=== PATIENT | female | born 1980 | race Caucasian/White ===

== ENCOUNTER 2017-05-18 17:45 | Emergency (ER) | payer BC ==
[2017-05-18 17:58] VITALS: BP 123/71
--- NOTE | 2017-05-18 18:22 | UC ---
Rony Ag Natalie, scribed for Alexander Barnes MD on 05/18/17 at 1816 . Back Pain HPI - HPI Summary HPI Summary: The pt is a 36 y/o F presenting to c/o low back pain starting for four days. she states she has been carrying ill children around at home and exacerbated this time by this. The pain is in the mid-low area of her back and radiates to her right hip. She has a previous back injury from 18 years ago to her sacroiliac joint where she was dropped on her back in a cheerleading accident. The pain is rated 8/10. The patient has treated the pain with Tylenol and Ibuprofen DATA KEYER. Pt denies muscle spasms, and weakness or numbness in legs. She hasnt had any falls recently. She has had similar episodes in the past with the same symptoms. The pt has had x-rays and physical therapy for her back injury in the past. - History of Current Complaint Chief Complaint: UCBackPain Stated Complaint: LOWER BACK PAIN Time Seen by Provider: 05/18/17 18:01 Hx Obtained From: Patient Hx Last Menstrual Period: 05/10/17 Onset/Duration: Lasting Days - started 4 days ago, Still Present Timing: Lasting Days Severity Initially: Moderate Severity Currently: Moderate Pain Intensity: 8 Pain Scale Used: 0-10 Numeric Back Pain: Is Diffuse - mid and low back, Radiates To - right hip Aggravating Factor(s): Nothing Alleviating Factor(s): Nothing Associated Signs And Symptoms: Negative: Weakness, Numbness, Other - muscle spasms - Allergies/Home Medications Allergies/Adverse Reactions: Allergies Allergy/AdvReac Type Severity Reaction Status Date / Time No Known Allergies Allergy Verified 05/18/17 17:58 PMH/Surg Hx/FS Hx/Imm Hx - Surgical History Surgical History: Yes Surgery Procedure, Year, and Place: 3 c-sections; wisdom teeth - Family History Known Family History: Negative: Cardiac Disease, Hypertension - Social History Alcohol Use: Rare Substance Use Type: None Smoking Status (MU): Current Some Day Smoker Have You Smoked in the Last Year: No When Did the Patient Quit Smoking/Using Tobacco: 8 yrs Review of Systems Musculoskeletal: Other: - back pain Neurological: Other - NEGATIVE: weakness and numbess in back All Other Systems Reviewed And Are Negative: Yes Physical Exam Triage Information Reviewed: Yes Appearance: Well-Appearing, Well-Nourished Vital Signs: Initial Vital Signs Temp 97.7 F 05/18/17 17:53 Pulse 88 05/18/17 17:53 Resp 20 05/18/17 17:53 BP 123/71 05/18/17 17:53 Pulse Ox 100 05/18/17 17:53 Vital Signs Reviewed: Yes Eyes: Positive: Conjunctiva Clear ENT: Positive: Normal ENT inspection Neck: Positive: Supple, Nontender Respiratory: Positive: Chest non-tender, Lungs clear, Normal breath sounds Cardiovascular: Positive: RRR, No Murmur Abdomen Description: Positive: Nontender Musculoskeletal: Positive: ROM Intact Neurological: Positive: Alert, Other: - no focal weakness or numbness lower extremities. She can walk. Psychological: Positive: Normal Response To Family Skin Exam: Normal Back Pain Course/Dx - Course Course Of Treatment: 36 yr old female with low back pain exacerbation. Not different than prior low back pain exacerbations. She is being given a small script for norco per her request. I have told her she needs to follow up with her PMD for further evaluation and workup. - Differential Dx/Diagnosis Provider Diagnoses: back pain Discharge - Discharge Plan Condition: Good Disposition: HOME Prescriptions: HYDROcodone/ACETAMIN 5-325 MG* [[place] 5-325 TAB*] 1 tab PO Q6H PRN #8 tab MDD 4 PRN Reason: Pain Patient Education Materials: Low Back Strain (ED), Back Pain (ED) Referrals: No Primary Care Phys,NOPCP [Primary Care Provider] - Chace Mercedes MD [Medical Doctor] - 2 Days The documentation as recorded by the Rony duke Natalie accurately reflects the service I personally performed and the decisions made by me, Alexander Barnes MD.
== END 2017-05-18 18:35 | disposition home or self-care (01) ==
LOC: UCEAST 17:45
DX: M54.5 Low back pain (principal); F17.200 Nicotine dependence, unspecified, uncomplicated
CPT/HCPCS: 99212; G0463

== ENCOUNTER 2017-06-12 17:40 | Emergency (ER) | payer BC ==
[2017-06-12 18:40] VITALS: BP 119/67
[2017-06-12] MEDS ORDERED: Amoxicillin PO (*) 500 MG CAP PO ONE (19:18)
--- NOTE | 2017-06-12 19:19 | UC ---
Throat Pain/Nasal Sherman HPI - HPI Summary HPI Summary: Pt presents with sore throat, sinus pain/pressure/congestion, and headache since yesterday. She has two children at home diagnosed with strep throat. She has not taken anything for her symptoms. Denies fever, chills, SOB, chest pain, abdominal pain, n/v/d/c. She is still smoking - History of Current Complaint Chief Complaint: UCGeneralIllness Stated Complaint: SORE THROAT, EAR PAIN Time Seen by Provider: 06/12/17 18:55 Hx Obtained From: Patient Hx Last Menstrual Period: 06/08/17 Onset/Duration: Gradual Onset Severity: Moderate Pain Intensity: 4 Pain Scale Used: 0-10 Numeric Cough: Nonproductive - Allergies/Home Medications Allergies/Adverse Reactions: Allergies Allergy/AdvReac Type Severity Reaction Status Date / Time No Known Allergies Allergy Verified 06/12/17 18:39 PMH/Surg Hx/FS Hx/Imm Hx Previously Healthy: Yes - Surgical History Surgical History: Yes Surgery Procedure, Year, and Place: 3 c-sections; wisdom teeth - Family History Known Family History: Negative: Cardiac Disease, Hypertension - Social History Occupation: Employed Full-time Lives: With Family Alcohol Use: Rare Substance Use Type: None Smoking Status (MU): Current Some Day Smoker Have You Smoked in the Last Year: No When Did the Patient Quit Smoking/Using Tobacco: 8 yrs Cessation Counseling: Counseled 3+Min - 10 Min Review of Systems Constitutional: Negative Skin: Negative Eyes: Negative ENT: Sore Throat, Nasal Discharge, Sinus Congestion, Sinus Pain/Tenderness Respiratory: Cough Cardiovascular: Negative Gastrointestinal: Negative Musculoskeletal: Negative Neurological: Negative Psychological: Negative All Other Systems Reviewed And Are Negative: Yes Physical Exam Triage Information Reviewed: Yes Appearance: Well-Appearing, No Pain Distress, Well-Nourished Vital Signs: Initial Vital Signs Temp 99.0 F 06/12/17 18:34 Pulse 74 06/12/17 18:34 Resp 18 06/12/17 18:34 BP 119/67 06/12/17 18:34 Pulse Ox 100 06/12/17 18:34 Vital Signs Reviewed: Yes Eyes: Positive: Conjunctiva Clear. Negative: Conjunctiva Inflamed, Discharge ENT: Positive: Hearing grossly normal, Pharyngeal erythema, Nasal congestion, TMs normal, Sinus tenderness, Uvula midline. Negative: Nasal drainage, TM bulging, TM dull, TM red, Tonsillar swelling, Tonsillar exudate, Hoarse voice Neck: Positive: Supple, Nontender, No Lymphadenopathy Respiratory: Positive: Chest non-tender, Lungs clear, Normal breath sounds, No respiratory distress, No accessory muscle use Cardiovascular: Positive: RRR, No Murmur, Pulses Normal Neurological: Positive: Alert Psychological: Positive: Age Appropriate Behavior Skin: Negative: rashes Throat Pain/Nasal Course/Dx - Course Course Of Treatment: POC strep negative, but will treat as 2 members of household are strep pos and she is symptomatic - Differential Dx/Diagnosis Provider Diagnoses: Pharyngitis. Sinusitis Discharge - Discharge Plan Condition: Stable Disposition: HOME Prescriptions: Amoxicillin PO (*) [Amoxicillin 500 MG CAP*] 500 mg PO Q12H #14 cap Patient Education Materials: Pharyngitis (ED) Referrals: John Boateng MD [Primary Care Provider] - Additional Instructions: If you develop a fever, shortness of breath, chest pain, new or worsening symptoms - please call your PCP or go to the ED.
== END 2017-06-12 19:39 | disposition home or self-care (01) ==
LOC: UCEAST 17:40
DX: J02.9 Acute pharyngitis, unspecified (principal); J32.9 Chronic sinusitis, unspecified; F17.200 Nicotine dependence, unspecified, uncomplicated
CPT/HCPCS: 87651; 99212; A9270-GY; G0463

== ENCOUNTER 2018-05-23 10:18 | Emergency (ER) | payer BC ==
--- NOTE | 2018-05-23 10:21 | UC ---
Respiratory Complaint HPI - HPI Summary HPI Summary: 37 yo female presents with fever, body aches, fatigue, sore throat, and dry cough since yesterday. She has been taking OTC rosetta-seltzer with no relief. She is concerned she has the flu. Denies abdominal pain, n/v, dysuria. - History of Current Complaint Stated Complaint: COUGH, BODY ACHES Time Seen by Provider: 05/23/18 10:20 Hx Obtained From: Patient Hx Last Menstrual Period: 06/08/17 Onset/Duration: Sudden Onset Severity Initially: Moderate Severity Currently: Moderate Pain Intensity: 7 Pain Scale Used: 0-10 Numeric Character: Cough: Nonproductive - Allergies/Home Medications Allergies/Adverse Reactions: Allergies Allergy/AdvReac Type Severity Reaction Status Date / Time No Known Allergies Allergy Verified 05/23/18 10:26 Home Medications: Home Medications Doxylamine/Phenylep/Dm/Aspirin [[place] Day-Night Tab Eff] 1 tab PO ONCE PRN 05/23/18 [History Confirmed 05/23/18] PMH/Surg Hx/FS Hx/Imm Hx - Additional Past Medical History Additional PMH: None - Surgical History Surgical History: Yes Surgery Procedure, Year, and Place: 3 c-sections; wisdom teeth - Family History Known Family History: Negative: Cardiac Disease, Hypertension - Social History Occupation: Employed Full-time Lives: With Family Alcohol Use: Rare Substance Use Type: None Smoking Status (MU): Current Some Day Smoker Have You Smoked in the Last Year: No When Did the Patient Quit Smoking/Using Tobacco: 8 yrs Review of Systems All Other Systems Reviewed And Are Negative: Yes Constitutional: Positive: Fever, Fatigue, Other - Body aches Skin: Positive: Negative Eyes: Positive: Negative ENT: Positive: Negative Respiratory: Positive: Cough Cardiovascular: Positive: Negative Gastrointestinal: Positive: Negative Neurovascular: Positive: Negative Neurological: Positive: Negative Psychological: Positive: Negative Physical Exam - Summary Physical Exam Summary: GENERAL: NAD. WDWN. No pain distress. SKIN: No rashes, sores, lesions, or open wounds. HEENT: Head: AT/NC Eyes: EOM intact. Conjunctiva clear without inflammation or discharge. Ears: Hearing grossly normal. TMs intact, no bulging, erythema, or edema. Nose: Nasal mucosa pink and moist. NTTP maxillary and frontal sinus. Throat: Posterior oropharynx without exudates, erythema, or tonsillar enlargement. Uvula midline. NECK: Supple. Nontender. No lymphadenopathy. CHEST: CTAB. No r/r/w. No accessory muscle use. Breathing comfortably and in no distress. CV: RRR. Without m/r/g. Pulses intact. Cap refill <2seconds NEURO: Alert. PSYCH: Age appropriate behavior. Triage Information Reviewed: Yes Vital Signs: Vital Signs: Temp Pulse Resp BP Pulse Ox 99.4 F 78 18 105/67 100 05/23/18 10:23 05/23/18 10:23 05/23/18 10:23 05/23/18 10:23 05/23/18 10:23 Laboratory Tests 05/23/18 10:34 Influenza A (Rapid) Positive A Vital Signs Reviewed: Yes Respiratory Course/Dx - Course Course Of Treatment: POC flu positive. No comordbities or risk factors - no tamiflu tx at this time. Advised to rest, drink fluids, and take tylenol/ ibuprofen for discomfort. OOW 3 days. - Differential Dx/Diagnosis Provider Diagnosis: Influenza A Discharge - Sign-Out/Discharge Documenting (check all that apply): Patient Departure All imaging exams completed and their final reports reviewed: No Studies - Discharge Plan Condition: Stable Disposition: HOME Patient Education Materials: Influenza (DC) Forms: *Work Release Referrals: John Boateng MD [Primary Care Provider] - Additional Instructions: If you develop a fever, shortness of breath, chest pain, new or worsening symptoms - please call your PCP or go to the ED. - Billing Disposition and Condition Condition: STABLE Disposition: Home
[2018-05-23 10:26] VITALS: BP 105/67
== END 2018-05-23 10:55 | disposition home or self-care (01) ==
LOC: UCEAST 10:18
DX: J10.1 Influenza due to other identified influenza virus with other respiratory manifestations (principal); F17.200 Nicotine dependence, unspecified, uncomplicated
CPT/HCPCS: 99211; G0463

== ENCOUNTER 2019-01-23 10:42 | Emergency (ER) | payer BC ==
[2019-01-23 10:59] VITALS: BP 109/64
--- NOTE | 2019-01-23 11:41 | UC ---
Throat Pain/Nasal Sherman HPI - HPI Summary HPI Summary: 38 y/o female presents to the urgent care c/o nasal congestion w/ green nasal discharge and moderate PND, sinus pain for the past 4 days. Pt states she has Hx of recurrent sinus infections. She has taken Mucinex w/o any improvement. Pt has a dry cough, but she thinks is b/c of moderate PND. Pt also has mild sore throat, 4/10 and B/L ear pressure. Pt request antibiotic Tx since she can not afford to be sick w/ 3 children at home. Pt has low grade fever at home the first day of symptoms. Pt denies SOB, wheezing, chest pain, dizziness, abdominal pain, N/V/D. - History of Current Complaint Chief Complaint: UCRespiratory Stated Complaint: SINUS ISSUE Time Seen by Provider: 01/23/19 11:35 Hx Obtained From: Patient Hx Last Menstrual Period: 12/28/18 ?: No Onset/Duration: Gradual Onset, Lasting Days - 4 days, Still Present, Worse Since - yesterday w/ green nasal discharge and PND Severity: Moderate Pain Intensity: 5 - sinus pain Pain Scale Used: 0-10 Numeric Cough: Nonproductive Associated Signs & Symptoms: Positive: Sinus Discomfort, Nasal Discharge - green , Other - moderate PND. Negative: Dysphagia, Wheezing, Hoarseness, Fever - Epiglottits Risk Factors Epiglottis Risk Factors: Negative - Allergies/Home Medications Allergies/Adverse Reactions: Allergies Allergy/AdvReac Type Severity Reaction Status Date / Time No Known Allergies Allergy Verified 01/23/19 10:59 PMH/Surg Hx/FS Hx/Imm Hx Previously Healthy: Yes Other Respiratory History: Hx of recurrent sinusitis - Surgical History Surgical History: Yes Surgery Procedure, Year, and Place: 3 c-sections; wisdom teeth - Family History Known Family History: Positive: None - Pt denies FMHX Negative: Cardiac Disease, Hypertension - Social History Occupation: Employed Full-time Lives: With Family Alcohol Use: Rare Substance Use Type: None Smoking Status (MU): Current Some Day Smoker Amount Used/How Often: 1/2ppd Have You Smoked in the Last Year: No When Did the Patient Quit Smoking/Using Tobacco: 8 yrs Household Exposure Type: Cigarettes Review of Systems All Other Systems Reviewed And Are Negative: Yes Constitutional: Positive: Negative Skin: Positive: Negative Eyes: Positive: Negative ENT: Positive: Sore Throat, Nasal Discharge - green, Sinus Congestion, Sinus Pain/Tenderness, Other - moderated green PND Respiratory: Positive: Cough - dry Cardiovascular: Positive: Negative Gastrointestinal: Positive: Negative Genitourinary: Positive: Negative Motor: Positive: Negative Neurovascular: Positive: Negative Musculoskeletal: Positive: Negative Neurological: Positive: Negative Psychological: Positive: Negative Is Patient Immunocompromised?: No Physical Exam - Summary Physical Exam Summary: Vitals: reviewed General: Well developed, well-nourished obese female patient with NAD. Head and face: Normocephalic and atraumatic, Positive tenderness over the frontal and maxillary sinuses.. Eyes: PERRLA, EOMI x 2. Normal conjunctiva. No eye discharge. ENT: Ears and TM with normal limits. Nose: edematous and erythematous nasal mucosa with with green discharge and erythematous mucosa. Pharynx with erythema, no exudate. green PND Neck: Supple, no JVD, no carotid bruits and no lymphadenopathy. Lungs: clear, no rales, no rhonchi, no wheezes. CVS: RRR, S1 and S2 present no murmurs or gallops appreciated. Abdomen: soft nontender with positive bowel sounds. Extremities: no edema noted. Neuro: WNL. Skin: warm and dry Triage Information Reviewed: Yes Vital Signs: Initial Vital Signs Temp 98.4 F 01/23/19 10:55 Pulse 75 01/23/19 10:55 Resp 16 01/23/19 10:55 BP 109/64 01/23/19 10:55 Pulse Ox 100 01/23/19 10:55 Throat Pain/Nasal Course/Dx - Course Course Of Treatment: 38 y/o female presents to the urgent care c/o nasal congestion w/ green nasal discharge and moderate PND, sinus pain for the past 4 days. Pt states she has Hx of recurrent sinus infections. She has taken Mucinex w/o any improvement. Pt has a dry cough, but she thinks is b/c of moderate PND. Pt also has mild sore throat, 4/10 and B/L ear pressure. Pt request antibiotic Tx since she can not afford to be sick w/ 3 children at home. Pt has low grade fever at home the first day of symptoms. Pt denies SOB, wheezing, chest pain, dizziness, abdominal pain, N/V/D. Hx obtained. Pt w/ sinusitis on examination. Educated that she should try symptomatic treatment first. However she declined. Pt Rx Amoxicillin PO and flonase nasal spray. Advised to continue taking Mucinex PO for cough. Discharge instructions explained to Pt. Advised to Return to the clinic or PCP if symptoms do not improve.Pt understood and agreed with plan of care. - Differential Dx/Diagnosis Differential Diagnosis/HQI/PQRI: Influenza, Laryngitis, Mononucleosis, Pharyngitis, Sinusitis, Tonsillitis, URI Provider Diagnosis: Acute bacterial sinusitis Discharge ED - Sign-Out/Discharge Documenting (check all that apply): Patient Departure - D/C home All imaging exams completed and their final reports reviewed: No Studies - Discharge Plan Condition: Stable Disposition: HOME Prescriptions: Amoxicillin PO (*) [Amoxicillin 500 MG CAP*] 500 mg PO Q12H #20 cap Fluticasone NASAL SPRAY 50MCG* [Flonase NASAL SPRAY 50MCG*] 2 spray BOTH NARES DAILY #1 btl Patient Education Materials: Sinusitis (ED) Referrals: John Boateng MD [Primary Care Provider] - 3 Days Additional Instructions: 1- Please increase fluid intake and rest. take full course of antibiotics to avoid resistance. Take yogurts w/ probiotics or Culturelle to protect your GI system 2-Use Flonase as directed to help drain fluid. Also buy saline drops to clear sinuses 3- Continue taking Mucinex PO to alleviates sinus congestion 4-Please f/u w/ your PCP in 3 days if symptoms do not improve for further management and treatment - Billing Disposition and Condition Condition: STABLE Disposition: Home - Attestation Statements Provider Attestation: Per institutional requirements, I have reviewed the chart, however, I was not consulted specifically or made aware of this patient by the midlevel provider. I did not personally evaluate, interact with , or disposition this patient.
== END 2019-01-23 12:39 | disposition home or self-care (01) ==
LOC: UCEAST 10:42
DX: J01.80 Other acute sinusitis (principal); B96.89 Other specified bacterial agents as the cause of diseases classified elsewhere; F17.210 Nicotine dependence, cigarettes, uncomplicated
CPT/HCPCS: 87651; 99212; G0463